=== PATIENT | male | born 1990 | race Caucasian/White ===

== ENCOUNTER 2018-11-01 12:01 | Emergency (ER) | payer OTHER ==
[~2018-11-01] VITALS: Ht 177.8 cm; Wt 106.6 kg
[2018-11-01] MEDS ORDERED: AMOXICILLIN 50500 MG PO (12:12)
[2018-11-01 12:27] VITALS: BP 145/91
== END 2018-11-01 12:27 | disposition home or self-care (01) ==
LOC: M.ERS 12:01
DX: H66.92 Otitis media, unspecified, left ear (principal)